=== PATIENT | female | born 1985 | race Caucasian/White ===

== ENCOUNTER → 2018-06-07 | Outpatient (CLI) | payer BC ==
[~2018-06-07] MED LIST: FERR324T PO; PRENTAB26 PO
== END | disposition home or self-care (01) ==
LOC: C.LAB1850 09:41
PROVIDERS: ATTEND Obstetrics & Gynecology
DX: Z34.82 Encounter for supervision of other normal pregnancy, second trimester (principal); Z3A.00 Weeks of gestation of pregnancy not specified

== ENCOUNTER 2018-12-01 07:46 | Inpatient (IN) ==
[2018-12-01] MEDS ORDERED: LACTATED RINGER'S 1,000 ML IV SCH (08:15)
[2018-12-01] MEDS ORDERED: OXYTOCIN 30 UNITS/500 ML BAG IV PRN ×3 (08:15→20:23)
[2018-12-01] MEDS ORDERED: LACTATED RINGER'S 1,000 ML IV PRN ×3 (08:15→12:21)
[2018-12-01 08:31] LABS: Hematocrit (blood only) 32.9 % (37-47); Hemoglobin 10.9 g/dL (12.0-16.0); Mean Corpuscular Volume 92.9 fL (80-100); Mean Platelet Volume 10.8 fL (7.4-10.4); Platelet Count 233 K/uL (130-400); RDW Coefficient of Variation 13.1 % (11.5-14.5); Red Blood Count 3.54 M/uL (4.2-5.4); White Blood Count 9.74 K/uL (4.8-10.8)
[2018-12-01 08:45] LABS: Mean Corpuscular Hgb Conc 33.1 g/dL (32-36)
--- NOTE | 2018-12-01 09:06 | History & Physical Report ---
Date of Service December 01, 2018 Assessment & Plan (1) Post-dates : 33yo at 41.4 weeks GA. IOL for late term . 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 Patient present for IOL for late term . course complicated by factor II deficiency, two vessel cord, and IUGR which resolved at the 36 week US. Patient has had 2 uncomplicated SVDs. 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 Cyst ovarian cyst removed in 2011 demise 17wk demise had D&E in 2010 Two vessel cord current [place] teeth extracted high school Surgical History H/O knee surgery in college Hx of appendectomy at age 12 Family History Grandmother (Paternal) Pancreatic cancer Grandfather (Maternal) Heart disease Social History marital status: Current Living Situation: Family Other Information That Helps Us Care for You: No Feels Safe at Home: Yes Safety Concerns: Feels Safe At This Time Smoking Status: Never smoker Hx Alcohol Use: No Hx Substance Use: No Beliefs That Will Affect Care: None Preferred Language: [place] Communication Ability: Effective Physical Exam 2 Vital Signs (Past 24 Hours): Last Vital Signs Temp 36.4 C L 12/01/18 08:05 Pulse 112 H 12/01/18 07:52 Resp 18 12/01/18 08:05 BP 137/63 12/01/18 07:52 Genitourinary: Manual OB Exam: + cervical dilation 4 cm, + cervical effacement 80%, + station -2 and + amniotic fluid clear OB Exam Monitor Tracing: + category I
[2018-12-01] MEDS ORDERED: ePHEDrine sulfate 50 MG/ML AMP ONE (09:49)
[2018-12-01] MEDS ORDERED: BUPIVACAINE 0.25% 30 ML VIAL ONE (09:49)
[2018-12-01] MEDS ORDERED: fentaNYL 2MCG/ML ROPIV 1.25MG/ML 100 ML BAG EPI ONE (09:50)
[2018-12-01] MEDS ORDERED: fentaNYL citrate 100 MCG/2 ML VIAL ONE (09:50)
--- NOTE | 2018-12-01 10:08 | Anesthesiology Consultation ---
Date of Service December 01, 2018 Assessment & Plan Chart Review Chart Review: Patient NOT seen in Pre Admission Testing and Acceptable Risk for Labor Epidural Consults Requested none ASA ASA2 Proposed Anesthesia Anesthesia Type: Labor Epidural Risk / Benefits Reviewed With: PT / POA / Parent / Guardian, Accepts Plan and Informed Consent Obtained NPO Date Last Intake of Fluids: 12/01/18 Time Last Intake of Fluids: 10:07 Date Last Intake of Solids: 11/30/18 Time Last Intake of Solids: 06:00 History Height/Weight Height: 5 ft 4 in Weight: 82.554 kg Allergies Allergy/AdvReac Type Severity Reaction Status Date / Time No Known Allergies Allergy Verified 11/30/18 04:20 Medications Home Medications Medication Instructions Recorded Confirmed Last Taken aspirin [Aspirin Childrens] 81 mg PO DAILY 11/10/18 12/01/18 11/28/18 08:00 ferrous sulfate 324 mg PO DAILY 11/30/18 12/01/18 11/28/18 08:00 magnesium 30 mg PO DAILY 11/30/18 12/01/18 11/28/18 08:00 vit-iron fum-folic ac 1 tab PO DAILY 11/30/18 12/01/18 11/28/18 08:00 [ Vitamin] Active Medications Generic Name Dose Route Start Last Admin Trade Name Freq PRN Reason Stop Dose Admin Lactated Ringer's 1,000 mls @ 999 mls/hr 12/01/18 08:15 12/01/18 08:56 Lr IV 12/31/18 08:14 999 mls/hr .Q1H1M PRN Administration (Pre-Anesthesia) Lactated Ringer's 1,000 mls @ 125 mls/hr 12/01/18 08:15 12/01/18 10:00 Lr IV 12/03/18 08:14 125 mls/hr .Q8H MARK Administration Past Medical History Medical History 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 Cyst ovarian cyst removed in 2011 demise 17wk demise had D&E in 2010 Two vessel cord current [place] teeth extracted high school Past Family History Family History Grandmother (Paternal) Pancreatic cancer Grandfather (Maternal) Heart disease Past Surgical History Surgical History H/O knee surgery in college Hx of appendectomy at age 12 Past Anesthesia History No Hx of Anesthesia Complications History of PONV No Motion Sickness Screening History of Motion Sickness: No Social History Smoking Status: Never smoker Hx Alcohol Use: No Hx Substance Use: No substance use type: does not use Exercise / Class Metabolic Activity II 4-5 Yardwork/Stairs/Walk up hill Negative for chest pain or shortness of breath. Review of Systems Patient denies active symptoms of GERD. Patient denies history of abnormal bleeding or bleeding disorder. Patient denies active use of anticoagulants other than low dose aspirin. Patient denies numbness, tingling or weakness in his lower extremities. Pt with known scoliosis Physical Exam Vital Signs Last Vital Signs Temp 36.4 C L 12/01/18 08:05 Pulse 112 H 12/01/18 07:52 Resp 18 12/01/18 08:05 BP 137/63 12/01/18 07:52 Constitutional not obese (Gravid uterus) ENMT Mouth: no TMJ abnormality and oral opening not small Thyromental Distance: > or= 3.5 Finger Breadths Mallampati Class: II Neck normal visual inspection; neck extension not limited Respiratory normal respiratory effort Auscultation: lungs clear to auscultation bilaterally Cardiovascular Rate/Rhythm: regular rate and regular rhythm Heart Sounds: no murmur Psychiatric A+Ox3, euthymic affect Orientation: alert and oriented x 3 Testing Laboratory Results 12/01/18 08:20
[2018-12-01] MEDS ORDERED: NALBUPHINE HCL INJ 10 MG/ML AMP IV PRN (12:21)
[2018-12-01] MEDS ORDERED: NALOXONE HCL 0.4 MG/1 ML VIAL/CARP IV PRN (12:21)
[2018-12-01] MEDS ORDERED: fentaNYL 2MCG/ML ROPIV 1.25MG/ML 100 ML BAG EPI PRN (12:21)
[2018-12-01] MEDS ORDERED: DiphenhydrAMINE HCL 50 MG/ML VIAL IV PRN (12:21)
[2018-12-01] MEDS ORDERED: ONDANSETRON INJ 2 MG/ML 2 ML VIAL IV PRN (12:21)
[2018-12-01] MEDS ORDERED: NALOXONE HCL 1 MG in SODIUM CHLORIDE 0.9% 1000ML 1,000 ML IV PRN (12:21)
[2018-12-01] MEDS ORDERED: ePHEDrine sulfate 50 MG/ML AMP IV PRN (12:21)
--- NOTE | 2018-12-01 15:26 | Obstetrical Progress Note ---
Date of Service December 01, 2018 Assessment & Plan (1) Post-dates : Subjective Patient doing well Physical Exam 2 Vital Signs (Past 24 Hours): Last Vital Signs Temp 36.7 C 12/01/18 13:50 Pulse 86 12/01/18 15:23 Resp 20 12/01/18 14:55 BP 99/63 L 12/01/18 15:23 Pulse Ox 100 12/01/18 15:22 Genitourinary: Manual OB Exam: + cervical dilation 5 cm, + cervical effacement 50%, + station -1 and + amniotic fluid clear OB Exam Monitor Tracing: + external FHT monitor used and + category I
--- NOTE | 2018-12-01 18:35 | Anesthesia Procedure Note ---
Date of Service December 01, 2018 Anesthesia Post Epidural Note Vital Signs Vital Signs: Temp Pulse Resp BP Pulse Ox 12/01/18 18:28 105 H 117/62 12/01/18 18:13 85 113/61 12/01/18 17:58 83 18 125/57 L 12/01/18 17:43 78 20 115/62 12/01/18 17:28 36.6 C 86 20 117/56 L 12/01/18 17:23 83 105/57 L 12/01/18 17:08 95 H 115/61 12/01/18 17:07 111 H 100 12/01/18 17:02 130 H 83 L 12/01/18 16:57 111 H 98 12/01/18 16:55 20 12/01/18 16:54 102 H 125/80 12/01/18 16:53 100 H 89 L 12/01/18 16:52 115 H 100 12/01/18 16:47 106 H 98 12/01/18 16:42 91 H 100 12/01/18 16:38 115 H 130/64 12/01/18 16:37 106 H 100 12/01/18 16:32 108 H 100 12/01/18 16:27 108 H 100 12/01/18 16:25 20 12/01/18 16:24 96 H 108/63 12/01/18 16:22 96 H 100 12/01/18 16:21 100 H 90 12/01/18 16:17 78 100 12/01/18 16:12 74 99 12/01/18 16:08 92 H 100/57 L 12/01/18 16:07 68 99 12/01/18 16:02 73 100 12/01/18 15:57 93 H 97 12/01/18 15:56 36.8 C 12/01/18 15:53 100 H 20 99/60 L 12/01/18 15:52 102 H 100 12/01/18 15:47 100 H 100 12/01/18 15:42 89 99 12/01/18 15:38 94 H 102/59 L 12/01/18 15:37 76 100 12/01/18 15:32 97 H 100 12/01/18 15:27 86 100 12/01/18 15:25 18 12/01/18 15:23 86 99/63 L 12/01/18 15:22 90 100 12/01/18 15:17 109 H 100 12/01/18 15:12 106 H 100 12/01/18 15:08 69 97/53 L 12/01/18 15:07 77 100 12/01/18 15:02 114 H 100 12/01/18 14:57 95 H 100 12/01/18 14:55 20 12/01/18 14:53 97 H 94/55 L 12/01/18 14:52 70 100 12/01/18 14:47 78 100 12/01/18 14:42 96 H 100 12/01/18 14:39 82 102/60 12/01/18 14:37 80 100 12/01/18 14:32 99 H 98 12/01/18 14:30 104 H 93 12/01/18 14:27 80 100 12/01/18 14:25 18 12/01/18 14:23 74 101/65 12/01/18 14:22 76 100 12/01/18 14:17 80 100 12/01/18 14:12 97 H 100 12/01/18 14:09 80 108/67 12/01/18 14:07 83 100 12/01/18 14:02 82 99 12/01/18 13:57 94 H 99 12/01/18 13:55 20 12/01/18 13:53 94 H 100/67 12/01/18 13:52 81 100 12/01/18 13:50 36.7 C 20 12/01/18 13:47 92 H 100 12/01/18 13:42 83 99 12/01/18 13:38 88 101/62 12/01/18 13:37 86 97 12/01/18 13:32 72 100 12/01/18 13:27 88 100 12/01/18 13:25 20 12/01/18 13:23 70 102/63 12/01/18 13:22 71 100 12/01/18 13:17 77 100 12/01/18 13:12 83 100 12/01/18 13:10 20 12/01/18 13:08 93 H 102/67 12/01/18 13:07 81 100 12/01/18 13:02 91 H 100 12/01/18 12:59 102 H 92 12/01/18 12:57 93 H 100 12/01/18 12:55 20 12/01/18 12:54 89 99/60 L 12/01/18 12:52 91 H 100 12/01/18 12:47 96 H 100 12/01/18 12:42 102 H 100 12/01/18 12:40 18 12/01/18 12:39 73 99/56 L 12/01/18 12:37 100 H 99 12/01/18 12:32 84 100 12/01/18 12:27 69 99 12/01/18 12:25 18 12/01/18 12:23 69 94/53 L 12/01/18 12:22 91 H 100 12/01/18 12:17 73 100 12/01/18 12:12 91 H 100 12/01/18 12:10 20 12/01/18 12:07 88 100 12/01/18 12:06 102 H 99/60 L 12/01/18 12:02 88 100 12/01/18 12:01 83 101/61 12/01/18 11:57 102 H 98 12/01/18 11:56 102 H 103/66 12/01/18 11:55 18 12/01/18 11:52 107 H 98/60 L 100 12/01/18 11:50 36.6 C 12/01/18 11:47 104 H 100 12/01/18 11:46 97 H 97/58 L 12/01/18 11:42 129 H 100 12/01/18 11:40 100 H 18 108/70 12/01/18 11:37 96 H 105/74 100 12/01/18 11:35 93 H 106/70 12/01/18 11:33 97 H 104/69 12/01/18 11:32 92 H 100 12/01/18 11:31 92 H 108/73 12/01/18 11:29 102 H 105/69 12/01/18 11:27 105 H 102/70 100 12/01/18 11:25 105 H 18 103/71 12/01/18 11:23 96 H 99/69 L 12/01/18 11:22 90 102/65 100 12/01/18 11:20 111 H 102/70 12/01/18 11:17 88 102/65 99 12/01/18 11:15 96 H 96/65 L 12/01/18 11:14 97 H 100/66 12/01/18 11:12 91 H 103/69 99 12/01/18 11:10 110 H 20 103/75 12/01/18 11:08 102 H 110/72 12/01/18 11:07 101 H 99 12/01/18 11:05 86 109/66 12/01/18 11:02 100 H 99 12/01/18 10:57 98 H 98 12/01/18 10:52 99 H 98 12/01/18 10:47 105 H 99 12/01/18 10:42 132 H 98 12/01/18 10:37 127 H 98 12/01/18 10:32 130 H 98 12/01/18 10:27 107 H 100 12/01/18 10:22 103 H 100 12/01/18 10:17 116 H 100 12/01/18 10:12 105 H 100 12/01/18 10:09 36.7 C 97 H 20 116/72 12/01/18 08:05 36.4 C L 18 12/01/18 07:52 112 H 137/63 12/01/18 07:51 36.4 C L 20 Notes Mental Status: alert / awake / arousable and participated in evaluation Nausea / Vomiting: adequately controlled Pain: adequately controlled Airway Patency, RR, SpO2: stable & adequate BP & HR: stable & adequate Hydration State: stable & adequate Neuraxial Anesthesia: was administered and sensory block is resolving Anesthetic Complications: no major complications apparent and Pt Satisfied with anesthetic care Epidural: Removed without complications and With tip intact
[2018-12-01] MEDS ORDERED: BENZOCAINE 20% AER SPR 82.5 GM CAN EXT PRN (20:23)
[2018-12-01] MEDS ORDERED: HYDROCORTISONE ACETATE 25 MG SUPP PR PRN (20:23)
[2018-12-01] MEDS ORDERED: ACETAMINOPHEN 325 MG TAB PO PRN (20:23)
[2018-12-01] MEDS ORDERED: SUPERCREAM 0.870% 15 GM JAR EXT PRN (20:23)
[2018-12-01] MEDS ORDERED: DIPHTHERIA/TETANUS/PERTUSSIS 0.5 ML SYR/VIAL IM ONE (20:23)
[2018-12-01] MEDS ORDERED: BISACODYL 10 MG SUPP PR PRN (20:23)
[2018-12-01] MEDS: DOCUSATE SODIUM 100 MG CAP PO SCH (21:33)
[2018-12-01] MEDS: IBUPROFEN 600 MG TAB PO PRN (22:58)
[2018-12-02] MEDS: IBUPROFEN 600 MG TAB PO PRN ×2 (05:23→13:17)
--- NOTE | 2018-12-02 06:50 | Obstetrical Progress Note ---
Date of Service <Suzy Manzo MD - Last Filed: 12/02/18 06:50> December 02, 2018 Assessment & Plan <Suzy Manzo MD - Last Filed: 12/02/18 06:50> (1) Post-dates : 33yo at 41.4 weeks GA with after induction of labor for post dates. PPD #1 Routine Care -Ambulation as tolerated -Diet and hydration -Pain control Discharge- would like it today. Instructions reviewed. Subjective <Suzy Manzo MD - Last Filed: 12/02/18 06:50> Ambulation: ambulating normally Voiding: no voiding problems Passing Gas:: Yes Diet Tolerance:: regular diet Lochia:: Moderate Feeding Type:: breast feeding Current Pain Level(1-10): 1 Constitutional: no fever and no chills Respiratory: no dyspnea Cardiovascular: no chest pain, no palpitations, no edema and no calf pain Gastrointestinal: no nausea and no vomiting Genitourinary (female): no dysuria Neurologic: no headache(s) Physical Exam <Suzy Manzo MD - Last Filed: 12/02/18 06:50> Vital Signs (Past 24 Hours) Last Vital Signs Temp 36.6 C 12/02/18 03:30 Pulse 72 12/02/18 03:30 Resp 18 12/02/18 03:30 BP 101/63 12/02/18 03:30 Pulse Ox 96 12/01/18 20:30 Respiratory normal respiratory effort, lungs clear to auscultation Cardiovascular RRR, no murmur, no edema Genitourinary OB Exam Abdomen: + fundal height Fundus: + firm and + relation to umbilicus (at umbilicus) Results & Data <Suzy Manzo MD - Last Filed: 12/02/18 06:50> Laboratory Results Laboratory Results - last 24 hr 12/01/18 08:20 WBC 9.74 RBC 3.54 L Hgb 10.9 L Hct 32.9 L MCV 92.9 MCH 30.8 MCHC 33.1 RDW Std Deviation 45.0 RDW Coeff of Eber 13.1 Plt Count 233 MPV 10.8 H Medications Administered Home Medications aspirin [Aspirin Childrens] 81 mg PO DAILY 11/10/18 [History Confirmed 12/01/18] ferrous sulfate 324 mg PO DAILY 11/30/18 [History Confirmed 12/01/18] magnesium 30 mg PO DAILY 11/30/18 [History Confirmed 12/01/18] vit-iron fum-folic ac [ Vitamin] 1 tab PO DAILY 11/30/18 [ History Confirmed 12/01/18] Active Medications Acetaminophen (Tylenol) 650 mg PO Q6H PRN PRN Reason: Pain/POWELL/Fever Stop: 12/31/18 20:22 Aspirin (Ecotrin Ectab) 81 mg PO QAM [facility] Stop: 01/01/19 08:59 Benzocaine (Dermoplast Pain Relieving [place]) 1 appln EXT PRN PRN PRN Reason: Perineal Discomfort Stop: 12/31/18 20:22 Last Admin: 12/01/18 21:34 Dose: 1 appln Bisacodyl (Dulcolax) 5 mg PO 2000 [facility] Stop: 12/02/18 20:01 Bisacodyl (Dulcolax) 10 mg [place] DAILY PRN PRN Reason: No BM on 2nd post- day Stop: 12/31/18 20:22 Cocaine HCl (Supercream 0.870%) 1 gm EXT BID PRN PRN Reason: Hemorrhoidal Inflammation Stop: 12/15/18 20:22 Last Admin: 12/01/18 21:34 Dose: 1 gm Docusate Sodium (Colace) 100 mg PO BID [facility] Stop: 12/31/18 20:59 Last Admin: 12/01/18 21:33 Dose: 100 mg Hydrocortisone (Anusol Hc) 25 mg [place] BID PRN PRN Reason: Hemorrhoidal Inflammation Stop: 12/31/18 20:22 Oxytocin (Pitocin) 30 units in 500 mls @ 333.333 mls/hr IV .Q1H30M PRN; Protocol PRN Reason: BLEEDING CONTROL Stop: 12/31/18 20:22 Ibuprofen (Motrin) 600 mg PO Q4H PRN PRN Reason: Pain/POWELL/Cramping/Fever Stop: 12/31/18 20:22 Last Admin: 12/02/18 05:23 Dose: 600 mg Prenat Multivit/[place]/Iron/Folic Ac ( Vitamin) 1 tab PO QAM [facility] Stop: 01/01/19 08:59 <Erich Hubbard MD - Last Filed: 12/02/18 08:04> Co-Signing Physician Notes Patient seen and agree with above finding and plan. Stable for discharge late afternoon
[2018-12-02 07:02] LABS: Hematocrit (blood only) 29.4 % (37-47); Hemoglobin 9.6 g/dL (12.0-16.0); Mean Corpuscular Hgb Conc 32.7 g/dL (32-36); Mean Corpuscular Volume 93.3 fL (80-100); Mean Platelet Volume 10.9 fL (7.4-10.4); Platelet Count 214 K/uL (130-400); RDW Coefficient of Variation 13.4 % (11.5-14.5); RDW Standard Deviation 45.7 fL (36.4-46.3); Red Blood Count 3.15 M/uL (4.2-5.4); White Blood Count 11.28 K/uL (4.8-10.8)
[2018-12-02] MEDS ORDERED: ASPIRIN 81 MG ECTAB PO SCH (09:00)
[2018-12-02] MEDS ORDERED: PRENATAL VITAMIN 1 TAB PO SCH (09:00)
[2018-12-02] MEDS: DOCUSATE SODIUM 100 MG CAP PO SCH (09:18)
[2018-12-02] MEDS ORDERED: BISACODYL 5 MG TABEC PO SCH (20:00)
--- NOTE | 2019-01-27 11:19 | Delivery Summary ---
DATE OF OPERATION: 12/01/2018 PROCEDURE: Normal spontaneous vaginal delivery with second-degree laceration repair. SURGEON: Erich Hubbard MD PREOPERATIVE DIAGNOSES: 1. Single intrauterine at 41 weeks 4 days gestational age. 2. Factor II deficiency. 3. Two-vessel cord. POSTOPERATIVE DIAGNOSES: 1. Single intrauterine at 41 weeks 4 days gestational age. 2. Factor II deficiency. 3. Two-vessel cord. 4. Delivered. ESTIMATED BLOOD LOSS: 200 mL. DRAINS: None. FLUIDS: Continuous lactated ringer. URINE OUTPUT: Not measured. FINDINGS: There was noted to be a viable with weight and Apgars pending. INDICATIONS: Ms. Scott is a 33-year-old G4, P2-0-1-2 admitted at 41 weeks 4 days gestational age for induction of labor for late term . On initial evaluation, the patient was noted to be 4 cm dilated, 80% effaced, -2 station. The patient underwent artificial rupture of membranes at admission and then progressed in labor without additional augmentation. She did receive an epidural for anesthesia and progressed in labor to complete-complete, +2, at which time she felt the urge to push. DESCRIPTION OF PROCEDURE: The patient progressed to 10 cm dilated, 100% effaced, +2 station, pushed over intact perineum with epidural anesthesia and delivered a viable with weight pending, Apgars of 8 and 9 at 1 and 5 minutes respectively. Head of the delivered in URI position and rest into right transverse. No nuchal was noted. Body and shoulders quickly followed. was noted to be vigorous upon delivery. A 1-minute delayed cord clamping was initiated after which the cord was double clamped and cut. Attention was then turned to the delivery. The placenta was delivered intact with 2-vessel cord with gentle cord traction. On inspection of vagina, perineum and cervix, there was a second-degree perineal laceration which was repaired in the traditional fashion with 3-0 Vicryl. Needle, sponge and instrument counts were correct at the completion of the case. I attest to the content of the Intraoperative Record and any orders documented therein. Any exception s are noted below.
== END 2018-12-02 19:05 | disposition home or self-care (01) | DRG 806 ==
LOC: 4S1 07:46 → 4S2 20:41